=== PATIENT | female | born 1990 | race American Indian/Alaskan Native ===

== ENCOUNTER 2022-04-28 21:01 | Emergency (ER) | payer SELFPAY ==
[2022-04-28] MEDS ORDERED: ASPIRIN 325 MG TAB PO ONE (22:10)
--- NOTE | 2022-04-28 22:53 | XRay Report ---
CHEST 2 VIEWS INDICATION / CLINICAL INFORMATION: CHEST PAIN. COMPARISON: None available. FINDINGS: SUPPORT DEVICES: Ventriculoperitoneal shunt tubing crosses the right chest. HEART / MEDIASTINUM: No significant abnormality. LUNGS / PLEURA: No significant pulmonary or pleural abnormality. No pneumothorax. BONES: No significant osseous abnormality. ADDITIONAL FINDINGS: No significant additional findings. IMPRESSION: 1. No active cardiopulmonary disease. Signer Name: Eliazar Carroll II, MD Signed: 04/28/2022 10:48 PM Workstation Name: [id number]
[2022-04-28 23:22] LABS: Basophils # (Auto) 0.1 K/mm3 (0.0-0.1); Eosinophils # (Auto) 0.1 K/mm3 (0.0-0.4); Eosinophils % (Auto) 2.2 % (0.0-4.3); Hematocrit 39.1 % (30.3-42.9); Hemoglobin 12.6 gm/dl (10.1-14.3); Lymphocytes # (Auto) 2.3 K/mm3 (1.2-5.4); Lymphocytes % (Auto) 42.1 % (13.4-35.0); Mean Corpuscular HGB Conc 32 % (30-34); Mean Corpuscular Volume 94 fl (79-97); Monocytes # (Auto) 0.3 K/mm3 (0.0-0.8); Monocytes % (Auto) 4.7 % (0.0-7.3); Platelet Count 159 K/mm3 (140-440); Red Blood Count 4.18 M/mm3 (3.65-5.03); Red Cell Distribution Width 14.6 % (13.2-15.2)
[2022-04-28 23:39] LABS: Alanine Aminotransferase 66 units/L (7-56); Albumin 4.7 g/dL (3.9-5); BUN/Creatinine Ratio 15; Blood Urea Nitrogen 18 mg/dL (7-17); Calcium 9.9 mg/dL (8.4-10.2); Hemolysis Index 7
--- NOTE | 2022-04-29 04:53 | Emergency Department Report ---
ED General Adult HPI - General Chief complaint: Chest Pain Stated complaint: CHEST PAIN/SOB Source: patient Mode of arrival: Ambulatory Limitations: No Limitations - History of Present Illness Initial comments: Patient 31-year-old female who presents with bilateral lower extremity edema with intermittent chest pain and shortness of breath for the past week. He states history of hyperthyroidism. However has not taken Synthroid for well over a year. Patient does endorse history of hypertension. And is noncompliant with medications. Patient denies fevers or chills there is been no productive cough. Been no suspicious travel or contacts. Patient is tolerating p.o. intak e there is no nausea or vomiting. General symptoms are improved with rest and elevation. Symptoms are exacerbated by activity and prolonged standing. Patient denies any fall injury or trauma. There is no history of CHF patient denies smoking , states occasional EtOH socially. - Related Data Previous Rx's Medication Instructions Recorded Last Taken Type Furosemide [Lasix TAB] 40 mg PO QDAY 4 Days #4 tablet 04/29/22 Unknown Rx Potassium Chloride 40 meq PO DAILY 3 Days #75 ml 04/29/22 Unknown Rx Allergies Allergy/AdvReac Type Severity Reaction Status Date / Time No Known Allergies Allergy Verified 04/28/22 22:10 ED Review of Systems ROS: Stated complaint: CHEST PAIN/SOB Other details as noted in HPI Constitutional: denies: chills, fever Eyes: denies: eye pain, eye discharge, vision change ENT: denies: ear pain, throat pain Respiratory: shortness of breath. denies: cough, orthopnea, wheezing Cardiovascular: chest pain, edema (Bilateral lower extremity +1 pitting). denies: palpitations, dyspnea on exertion, orthopnea, syncope, paroxysmal nocturnal dyspnea Endocrine: no symptoms reported Gastrointestinal: denies: abdominal pain, nausea, vomiting, diarrhea Genitourinary: as per HPI Musculoskeletal: denies: back pain, joint swelling, arthralgia Skin: denies: rash, lesions Neurological: denies: headache, weakness, numbness, paresthesias, confusion, vertigo Psychiatric: denies: anxiety, depression Hematological/Lymphatic: as per HPI ED Past Medical Hx - Past Medical History Hx Hypertension: Yes Additional medical history: Hyperthyroidism - Medications Home Medications: Home Medications Medication Instructions Recorded Confirmed Last Taken Type Furosemide [Lasix TAB] 40 mg PO QDAY 4 Days #4 tablet 04/29/22 Unknown Rx Potassium Chloride 40 meq PO DAILY 3 Days #75 ml 04/29/22 Unknown Rx ED Physical Exam - General Limitations: No Limitations General appearance: alert, in no apparent distress - Head Head exam: Present: atraumatic, normocephalic - Eye Eye exam: Present: normal appearance, PERRL, EOMI Pupils: Present: normal accommodation - ENT ENT exam: Present: mucous membranes moist - Neck Neck exam: Present: normal inspection, full ROM. Absent: tenderness, lymphadenopathy - Respiratory Respiratory exam: Present: normal lung sounds bilaterally. Absent: respiratory distress, wheezes, stridor, chest wall tenderness, prolonged expiratory - Cardiovascular Cardiovascular Exam: Present: regular rate, normal rhythm, normal heart sounds. Absent: systolic murmur, diastolic murmur, rubs, gallop - GI/Abdominal GI/Abdominal exam: Present: soft, normal bowel sounds. Absent: distended, tenderness, guarding, rebound, rigid, bruit, hernia - Rectal Rectal exam: Present: deferred - External exam: Present: other (Deferred) - Extremities Exam Extremities exam: Present: full ROM, normal capillary refill, pedal edema. Absent: calf tenderness - Back Exam Back exam: Present: normal inspection, full ROM. Absent: CVA tenderness (R), CVA tenderness (L) - Neurological Exam Neurological exam: Present: alert, oriented X3, CN II-XII intact, normal gait, reflexes normal. Absent: motor sensory deficit - Expanded Neurological Exam Expanded Patient oriented to: Present: person, place, time Speech: Present: fluid speech Motor strength exam: RUE: 5, LUE: 5, RLE: 5, LLE: 5 Best Eye Response ([place]): (4) open spontaneously Best Motor Response ([place]): (6) obeys commands Best Verbal Response ([place]): (5) oriented Girish Total: 15 - Psychiatric Psychiatric exam: Present: normal affect, normal mood - Skin Skin exam: Present: warm, dry, intact, normal color. Absent: rash ED Course Vital Signs 04/28/22 21:05 Temperature 98.7 F Pulse Rate 83 Respiratory 18 Rate Blood Pressure 142/95 O2 Sat by Pulse 99 Oximetry ED Medical Decision Making - Lab Data Result diagrams: 04/28/22 22:45 04/28/22 22:45 Labs 04/28/22 04/28/22 04/29/22 22:45 22:45 01:14 WBC 5.5 RBC 4.18 Hgb 12.6 Hct 39.1 MCV 94 MCH 30 MCHC 32 RDW 14.6 Plt Count 159 Lymph % (Auto) 42.1 H [place] % (Auto) 4.7 Eos % (Auto) 2.2 Baso % (Auto) 2.0 H Lymph # (Auto) 2.3 [place] # (Auto) 0.3 Eos # (Auto) 0.1 Baso # (Auto) 0.1 Seg Neutrophils % 49.0 Seg Neutrophils # 2.7 Sodium 139 Potassium 3.3 L Chloride 99.9 Carbon Dioxide 26 Anion Gap 16 BUN 18 H Creatinine 1.2 Estimated GFR 52 BUN/Creatinine Ratio 15 Glucose 89 Calcium 9.9 Total Bilirubin 0.40 AST 61 H ALT 66 H Alkaline Phosphatase 62 Troponin T < 0.010 < 0.010 Total Protein 7.6 Albumin 4.7 Albumin/Globulin Ratio 1.6 Labs 04/28/22 04/28/22 04/29/22 22:45 22:45 01:14 WBC 5.5 RBC 4.18 Hgb 12.6 Hct 39.1 MCV 94 MCH 30 MCHC 32 RDW 14.6 Plt Count 159 Lymph % (Auto) 42.1 H [place] % (Auto) 4.7 Eos % (Auto) 2.2 Baso % (Auto) 2.0 H Lymph # (Auto) 2.3 [place] # (Auto) 0.3 Eos # (Auto) 0.1 Baso # (Auto) 0.1 Seg Neutrophils % 49.0 Seg Neutrophils # 2.7 Sodium 139 Potassium 3.3 L Chloride 99.9 Carbon Dioxide 26 Anion Gap 16 BUN 18 H Creatinine 1.2 Estimated GFR 52 BUN/Creatinine Ratio 15 Glucose 89 Calcium 9.9 Total Bilirubin 0.40 AST 61 H ALT 66 H Alkaline Phosphatase 62 Troponin T < 0.010 < 0.010 NT-Pro-B Natriuret Pep Total Protein 7.6 Albumin 4.7 Albumin/Globulin Ratio 1.6 Lipase TSH 04/29/22 04/29/22 04/29/22 05:00 05:00 05:00 WBC RBC Hgb Hct MCV MCH MCHC RDW Plt Count Lymph % (Auto) [place] % (Auto) Eos % (Auto) Baso % (Auto) Lymph # (Auto) [place] # (Auto) Eos # (Auto) Baso # (Auto) Seg Neutrophils % Seg Neutrophils # Sodium Potassium Chloride Carbon Dioxide Anion Gap BUN Creatinine Estimated GFR BUN/Creatinine Ratio Glucose Calcium Total Bilirubin AST ALT Alkaline Phosphatase Troponin T NT-Pro-B Natriuret Pep 207.9 Total Protein Albumin Albumin/Globulin Ratio Lipase 25 TSH 4.730 H - EKG Data EKG shows normal: sinus rhythm, axis, intervals, QRS complexes, ST-T waves Rate: normal - EKG Data When compared to previous EKG there are: previous EKG unavailable Interpretation: normal EKG (NSR NSTEMI interp by ed attending) - Radiology Data Radiology results: report reviewed, image reviewed CHEST 2 VIEWS INDICATION / CLINICAL INFORMATION: CHEST PAIN. COMPARISON: None available. FINDINGS: SUPPORT DEVICES: Ventriculoperitoneal shunt tubing crosses the right chest. HEART / MEDIASTINUM: No significant abnormality. LUNGS / PLEURA: No significant pulmonary or pleural abnormality. No pneumothorax. BONES: No significant osseous abnormality. ADDITIONAL FINDINGS: No significant additional findings. IMPRESSION: 1. No active cardiopulmonary disease. Signer Name: Stevo Carroll II, MD Signed: 04/28/2022 10:48 PM Workstation Name: [id number] Transcribed By: YENY Dictated By: STEVO CARROLL II, MD Electronically Authenticated By: STEVO CARROLL II, MD Signed Date/Time: 04/28/222247 DD/ 47 TD/TT: Critical care attestation.: If time is entered above; I have spent that time in minutes in the direct care of this critically ill patient, excluding procedure time. ED Disposition Clinical Impression: Peripheral edema Disposition: HOME / SELF CARE / HOMELESS Is pt being admited?: No Does the pt Need Aspirin: No Condition: Stable Instructions: Edema, [id number], Peripheral Edema Additional Instructions: Take medications as prescribed, follow-up with your doctor in 2 to 3 days. Return to emergency department should symptoms worsen. Prescriptions: Furosemide [Lasix TAB] 40 mg PO QDAY 4 Days #4 tablet Potassium Chloride 40 meq PO DAILY 3 Days #75 ml Referrals: TAMI BARR MD [Staff Physician] - 3-5 Days Forms: Work/School Release Form(ED) Time of Disposition: 06:51
[2022-04-29 07:05] VITALS: BP 137/90
--- NOTE | 2022-04-29 09:07 | Electrocardiograph Report ---
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
== END 2022-04-29 07:02 | disposition home or self-care (01) ==
LOC: ED 21:01
DX: R60.9 Edema, unspecified (principal); R07.89 Other chest pain; R06.02 Shortness of breath; I10 Essential (primary) hypertension; E05.90 Thyrotoxicosis, unspecified without thyrotoxic crisis or storm; Z79.899 Other long term (current) drug therapy
CPT/HCPCS: 36415; 71046; 80053; 83690; 83880; 84443; 84484; 85025; 93005; 99283